=== PATIENT | female | born 1945 | race Caucasian/White ===

== ENCOUNTER 2021-05-17 15:01 | Outpatient (RCR) | payer MEDICARE, OTHER, SELFPAY ==
--- NOTE | 2021-05-19 18:47 | PTOPEVAL ---
Thank you for referring Medina Weaver to [facility].? The patient is scheduled to be seen for therapy? ____x/week for ___ weeks. Please review, sign, date and return this plan of care DORA. I agree with and certify that the following plan of care is medically necessary. 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 she reports she had a bunion, hammer toes, warts, and a gastroc recession ( lengthening). she reports she was in a bout from surgery until 05/13/21. she reports she is now in a walking shoe on the R foot. she reports she has pins and plates in the toes/foot of the R LE. she reports she is complicated by R knee pain. she reports she had a L knee replacement last year. Prior Level of Function Comments Additional Prior Level of Function prior to surgery, patient Comments reports she was getting around slowly. she reports she was having severe pain in the R foot/ankle. she reports she was using no AD prior to surgery, but reports she was having a lot of issues with her balance. she reports she is using a cane and walker now . Pain Assessment Timing of Pain Assessment Timing of Pain Assessment Assessment Pain Scale Pain Scale Used Numeric (1 - 10) Self Report Pain Assessment Right Foot/Feet Reported Pain Level 9 Lowest Pain Intensity 6 Greatest Pain Intensity 9 Pain Score Pain Score 9: Self Report Additional Pain Score Comments
--- NOTE | 2021-06-07 15:15 | PTOPEVAL ---
Thank you for referring Medina Weaver to [facility].? The patient is scheduled to be seen for therapy? ____x/week for ___ weeks. Please review, sign, date and return this plan of care DORA. I agree with and certify that the following plan of care is medically necessary. Referring Physician Date Admitting Provider: Attending Provider: Joe Ruano Referring Provider: *PT Outpatient Evaluation Start: 05/17/21 15:13 Freq: Status: Active Protocol: Document 06/07/21 14:00 [facility] (Rec: 06/07/21 15:[address] [facility] [id number]) Therapy Assessment Status Assessment Status Assessment Status Progress Evaluation Information Problem Diagnosis R ankle equinus, gastroc recession Onset 04/19/21 Subjective Information patient reports she feels Query Text:As Reported By Patient/ moht this date. she Family reports she has been wearing her normal shoe on the R foot since last week. she reports it feel tight and she has had increased tightness and pain in the R foot/toes. she reports she returns for MD follow up on 06/10/21. patient reports she has increased pain with increased time/ distance walking. Pain Assessment Timing of Pain Assessment Timing of Pain Assessment Assessment Pain Scale Pain Scale Used Numeric (1 - 10) Self Report Pain Assessment Right Foot/Feet Reported Pain Level 8 Pain Score Pain Score 8: Self Report Interventions Used Interventions Used By Clinicians Activity or ADL's,Education, Exercise Lower Extremity Range of Motion Ankle/Foot Range of Motion Right Ankle Dorsiflexion With Knee Extension 10 Range of Motion - Active Ankle Plantarflexion Range of Motion - 25 Active Query Text: Lower Extremity Muscle Strength Testing Ankle Strength Right Ankle Dorsiflexion Strength 4+ Good + Ankle Plantarflexion Strength 4 Good Ankle Eversion Strength 4 Good Ankle Inversion Strength 4 Good Palpation Assessment Palpation Palpation patient able to don and doff R shoe independently this date. patient presents with 1 remaining stitch knot in dorsal aspect of the distal R great toe. Gait Assessment Gait Pattern Assessment Other Gait Observations
--- NOTE | 2021-06-16 15:28 | PTOPEVAL ---
Thank you for referring Medina Weaver to [facility].? The patient is scheduled to be seen for therapy? ____x/week for ___ weeks. Please review, sign, date and return this plan of care DORA. I agree with and certify that the following plan of care is medically necessary. Referring Physician Date Admitting Provider: Attending Provider: Joe Ruano Referring Provider: CARMENZA Outpatient Evaluation Start: 05/17/21 15:13 Freq: Status: Active Protocol: Document 06/09/21 14:45 J (Rec: 06/16/21 15:[address] [facility] [id number]) Therapy Assessment Status Assessment Status Assessment Status Discharge Evaluation Information Problem Diagnosis R ankle equinus, gastroc recession Onset 04/19/21 Additional Evaluation Detail lefs = 48% functionally declined Subjective Information patient reports she feels Query Text:As Reported By Patient/ Alright this date. she Family reports she is ready to be done with therapy. she reports she returns to the MD and will be hoping to be DC'd from his services as well. Pain Assessment Timing of Pain Assessment Timing of Pain Assessment Assessment Pain Scale Pain Scale Used Numeric (1 - 10) Self Report Pain Assessment Right Foot/Feet Reported Pain Level 6 Pain Score Pain Score 6: Self Report Interventions Used Interventions Used By Clinicians Activity or ADL's,Education, Exercise Lower Extremity Range of Motion Ankle/Foot Range of Motion Right Ankle Dorsiflexion With Knee Extension 15 Range of Motion - Active Ankle Plantarflexion Range of Motion - 25 Active Query Text: Ankle Eversion Range of Motion - Active 5 Ankle Inversion Range of Motion - Active 40 Lower Extremity Muscle Strength Testing Ankle Strength Right Ankle Dorsiflexion Strength 4+ Good + Ankle Plantarflexion Strength 4 Good Ankle Eversion Strength 4 Good Ankle Inversion Strength 4 Good Muscle Length Testing Muscle Length Testing Gastrocnemius Length (L) Mild Tightness,(R) Moderate Tightness Palpation Assessment Palpation Palpation patient presents still with tenderness to palpation of the R great toe MTP and the plantar feet along the met heads Gait Assessment Gait Pattern Assessment Other Gait Observations patient ambulates with a cane and antalgia favoring th
== END 2021-06-09 08:30 | disposition home or self-care (01) ==
LOC: CHSPT 15:01
PROVIDERS: PCP Family Medicine
DX: M25.571 Pain in right ankle and joints of right foot (principal)
CPT/HCPCS: 97110; 97140; 97161; 97530

== ENCOUNTER 2022-04-12 13:14 | Outpatient (RCR) | payer MEDICARE, SELFPAY ==
--- NOTE | 2022-04-12 12:53 | PTOPEVAL ---
Thank you for referring Medina Weaver to [facility] The patient is scheduled to be seen for therapy? __3__x/week for 12 visits. Please review, sign, date and return this plan of care DORA. I agree with and certify that the following plan of care is medically necessary. Referring Physician Date Admitting Provider: Attending Provider: Devan Cuadra, Referring Provider: *PT Outpatient Evaluation Start: 04/12/22 12:27 Freq: Status: Active Protocol: Document 04/12/22 12:27 [facility] (Rec: 04/12/22 12:52 [facility] [email or web address]) Therapy Assessment Status Assessment Status Assessment Status Evaluation Evaluation Information Problem Diagnosis s/p right TKA Onset 04/06/22 Subjective Information Pt. reports she underwent Query Text:As Reported By Patient/ right TKA last week. She Family reports that she has not been exercising daily. She states that she has intense pain behind the right knee. She reports that she is having trouble straightening the knee . She reports that before surgery she would use a walker only at night. She reports that prior to surgery she was driving and doing all her own grocery shopping and other IADL's. She reports that her goal is to return to walking normal w/o an AD and return to driving. Pain Assessment Timing of Pain Assessment Timing of Pain Assessment Pre-Treatment Pain Scale Pain Scale Used Numeric (1 - 10) Self Report Pain Assessment Right Knee(s) Reported Pain Level 8 Pain Frequency Continuous Greatest Pain Intensity 9 Pain Score Pain Score 8: Self Report Interventions Used Interventions Used By Clinicians Compression Pump,Exercise Lower Extremity Range of Motion General Lower Extremity Range of Motion Gross Lower Extremity Range of Motion -right knee AROM 25-50 degrees Comments -left knee AROM 10-102 degrees Lower Extremity Muscle Strength Testing General Lower Extremity Strength Gross Lower Extremity Strength -right hip flexin 4-/5 -left hip flexion 3+/5 -right knee flexion 3-/5 -left knee flexion 4+/5 -right knee extension 3-/5 -left knee extension 4+/5 -bilater
--- NOTE | 2022-05-02 10:27 | PCPTNOTE ---
Ms Medina Weaver has been seen for a total of 10 outpatient therapy treatments since 04/12/22 status post TKA on 04/06/22. Patient rates her pain a -04/16 this date. Medina's right knee active assistive range of motion is 12-81 degrees. Medina is ambulating with straight cane with fair heelstrike but min to no active knee flexion during swing phase. Currently, Medina is performing/receiving: Ther Ex: -AAROM knee flexion x 5 minutes -heel prop to promote knee extension x 10 minutes -quad set x 20 x 10 seconds -scar massage x 4 min -standing heel raises x 20 - standing toe raises x 20 -standing hip abduction x 20 bilateral -standing hip extension x 20 bilateral -Nustep x 10 min to increase knee flex and ex Treatment is ending with vasopneumatic compression x 15 min to decrease pain and swelling post exercise. Thank you for the referral of this patient. If you have any questions or concerns regarding her rehab please contact our office Valerie Carbone PTA
--- NOTE | 2022-05-08 13:51 | PTOPEVAL ---
Thank you for referring Medina Weaver to [facility].? The patient is scheduled to be seen for therapy? 3x/week for 12 visits. Please review, sign, date and return this plan of care DORA. I agree with and certify that the following plan of care is medically necessary. Referring Physician Date Admitting Provider: Attending Provider: Devan Cuadra, MD Referring Provider: *PT Outpatient Evaluation Start: 04/12/22 12:27 Freq: Status: Active Protocol: Document 05/08/22 12:49 [facility] (Rec: 05/08/22 13:51 [facility] [email or web address]) Therapy Assessment Status Assessment Status Assessment Status Progress Evaluation Information Problem Diagnosis s/p R TKA Onset 04/06/22 Subjective Information Pt reports that her knee is Query Text:As Reported By Patient/ not in much pain today. She Family has been performing her heel prop exercise at home with a weight on her femur but reports it has been hard on her knee just because her weight is a bit heavier than the one we used in the clinic. She has her follow up with her MD on 05/16 and is curious about what he will say. Pain Assessment Timing of Pain Assessment Timing of Pain Assessment Pre-Treatment Pain Scale Pain Scale Used Numeric (1 - 10) Self Report Pain Assessment Right Knee(s) Reported Pain Level 1 Pain Score Pain Score 1: Self Report Interventions Used Interventions Used By Clinicians Activity or ADL's,Compression Pump,Exercise Lower Extremity Range of Motion General Lower Extremity Range of Motion Gross Lower Extremity Range of Motion R knee extension: lacking 9 ( Comments pre manual 13) R knee flexion: 72 Lower Extremity Muscle Strength Testing General Lower Extremity Strength Gross Lower Extremity Strength R hip flexion: 4/5 L hip flexion: 4-/5 R knee flexion: 4+/5 L knee flexion: 4+/5 R knee extension: 5/5 L knee extension: 5/5 Bilateral ankle dorsiflexion: 5/5 Extremity Circumference Assessment Circumference Assessment Location Right Body Part Knee Site Descriptor ([place]) joint line Circumference (cm) 50 Noninvolved Side Circumference (cm) 46 Gait Assessment Gait Assessment Additional Ambulation Comments
--- NOTE | 2022-05-19 15:01 | PTOPEVAL ---
Thank you for referring Medina Weaver to [facility].? The patient is scheduled to be seen for therapy? ____x/week for ___ weeks. Please review, sign, date and return this plan of care DORA. I agree with and certify that the following plan of care is medically necessary. Referring Physician Date Admitting Provider: Attending Provider: Devan Cuadra, MD Referring Provider: *PT Outpatient Evaluation Start: 04/12/22 12:27 Freq: Status: Active Protocol: Document 05/19/22 14:05 [facility] (Rec: 05/19/22 15:01 [facility] [email or web address]) Therapy Assessment Status Assessment Status Assessment Status Discharge Evaluation Information Problem Diagnosis s/p R TKA Onset 04/06/22 Additional Evaluation Detail LEFS = Subjective Information patient reports her MD says Query Text:As Reported By Patient/ she can discontinue therapy. Family she reports she would like to make today her last therapy session. she reports she is compliant with her HEP at home . Pain Assessment Timing of Pain Assessment Timing of Pain Assessment Assessment Self Report Self Report Pain Level 0 Pain Score Pain Score 0: Self Report Lower Extremity Range of Motion General Lower Extremity Range of Motion Gross Lower Extremity Range of Motion -15 degrees arom R knee Comments extension 75 degrees arom R knee flexion Lower Extremity Muscle Strength Testing General Lower Extremity Strength Gross Lower Extremity Strength L hip flexion: 4-/5 L knee flexion: 4+/5 L knee extension: 5/5 Gait Assessment Gait Pattern Assessment Other Gait Observations patient ambulates with cane in the L hand. she ambulates with decreased heel contact of the R LE, R knee flexion at all times, and decreased step/ stride length. General Exercise General Exercises Exercise Description Ther ex Query Text:Record Sets, Reps, -arom knee flexion and Resistance, and Position extension with UE assist to push into furthe flexion of the R knee x10 minutes -10 minutes heel prop -5 minutes heel slide -slr 2x10 -ambualtion 300ft -sit to stand x2 -re-evaluation PT Clinical Summary Clinical Summary Protocol: PTEVCODE PT Clinical
== END 2022-05-19 15:18 | disposition home or self-care (01) ==
LOC: CHSPT 13:14
PROVIDERS: Visit Provider Orthopaedic Surgery
DX: Z96.651 Presence of right artificial knee joint (principal)
CPT/HCPCS: 97014; 97016; 97110; 97116; 97140; 97161; 97530; G0283